=== PATIENT | female | born 1960 | race Caucasian/White ===

== ENCOUNTER → 2016-08-24 | Outpatient (CLI) | payer MEDICARE, MEDICAID ==
[~2016-08-24] MED LIST: ASEN5TAB7 SL; BISO5TAB13 PO; CALC0.25 PO; CALC1CAP22 PO; DICY10CA13 PO; ESOM40CA PO; FLUT1AER ORAL INH; HYDR50CA5 PO; IPRA4AER PO; LEVO125T11 PO; MELA3TAB30 PO; OXYB15TA PO; POTA10TA14 PO; PRAZ5CAP2 PO; TOPI100T43 PO; VILA10TA PO; VORT10TA PO
== END ==
LOC: WC.BC 08:47
DX: Z12.31 Encounter for screening mammogram for malignant neoplasm of breast (principal); N64.59 Other signs and symptoms in breast
CPT/HCPCS: 77063; G0202